=== PATIENT | female | born 1985 | race Two or more races ===

== ENCOUNTER 2017-04-20 00:16 | Emergency (ER) | payer OTHER ==
[~2017-04-20] VITALS: Ht 152.4 cm; Wt 74.4 kg
[2017-04-20] MEDS: LORATADINE 10 MG TABLET PO SCH (00:57)
--- NOTE | 2017-04-20 00:59 | NUR ---
Patient discharged to home in stable conditon. Written and verbal after care instructions given. Patient verbalizes understanding of instructions.
[2017-04-20] MEDS ORDERED: LORATADINE 10 MG TABLET ONE (01:04)
== END 2017-04-20 00:59 | disposition home or self-care (01) ==
LOC: ER 00:18
DX: S80.861A Insect bite (nonvenomous), right lower leg, initial encounter (principal); F10.20 Alcohol dependence, uncomplicated; F17.200 Nicotine dependence, unspecified, uncomplicated; W57.XXXA Bitten or stung by nonvenomous insect and other nonvenomous arthropods, initial encounter; Y93.89 Activity, other specified; Y99.8 Other external cause status; Y92.89 Other specified places as the place of occurrence of the external cause
CPT/HCPCS: A4663

== ENCOUNTER 2018-01-21 04:04 | Emergency (ER) | payer OTHER ==
[~2018-01-21] VITALS: Ht 144.8 cm; Wt 74.4 kg
--- NOTE | 2018-01-21 04:15 | NUR ---
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
--- NOTE | 2018-01-21 04:23 | NUR ---
Dr. English at bedside for MSE.
[2018-01-21 04:57] LABS: BASOPHILS # (AUTO) 0.1 K/uL (0.0-8.0); BASOPHILS % (AUTO) 0.7 % (0.0-2.0); EOSINOPHILS # (AUTO) 0.2 K/uL (0.0-0.7); EOSINOPHILS % (AUTO) 2.9 % (0.0-7.0); HEMATOCRIT 30.5 % (31.2-41.9); HEMOGLOBIN 9.6 g/dL (10.9-14.3); LYMPHOCYTES # (AUTO) 3.5 K/uL (20.0-40.0); LYMPHOCYTES % (AUTO) 42.7 % (20.5-51.5); MEAN CORPUSCULAR HEMOGLOBIN 20.1 uug (24.7-32.8); MEAN CORPUSCULAR HGB CONC 31 g/dL (32.3-35.6); MONOCYTES # (AUTO) 0.6 K/uL (2.0-10.0); NEUTROPHILS # (AUTO) 3.9 K/uL (1.8-8.9); NEUTROPHILS % (AUTO) 46.7 % (38.5-71.5); PLATELET COUNT (AUTO) 572 K/uL (179-408); RED BLOOD CELL COUNT(AUTO) 4.76 MIL/uL (3.63-4.92); WHITE BLOOD COUNT (AUTO) 8.3 K/uL (3.8-11.8)
[2018-01-21 05:09] LABS: CARBON DIOXIDE 26 mmol/L (21-32); CHLORIDE 104 mmol/L (98-107); CREATININE 0.6 mg/dL (0.6-1.3); GLUCOSE 97 mg/dL (74-106); POTASSIUM 3.2 mmol/L (3.5-5.1); UREA NITROGEN, BLOOD 11 mg/dL (7-18)
--- NOTE | 2018-01-21 05:12 | NUR ---
Xray at bedside.
[2018-01-21 05:15] LABS: ALANINE AMINOTRANSFERASE 28 U/L (14-59); ALKALINE PHOSPHATASE 86 U/L (50-136); ASPARTATE AMINOTRANSFERASE 13 U/L (15-37); BILIRUBIN,DIRECT < 0.1 mg/dL (0.0-0.2); BILIRUBIN,TOTAL 0.1 mg/dL (0.2-1.0); TOTAL PROTEIN, SERUM 8.1 g/dL (6.4-8.2)
[2018-01-21] MEDS ORDERED: ASPIRIN 325 MG TABLET PO ONE (05:30)
[2018-01-21] MEDS ORDERED: POTASSIUM BICARBONATE/CIT AC 25 MEQ TABLET.EFF PO ONE (05:30)
[2018-01-21 05:35] LABS: EOSINOPHILS % (MANUAL) 3 % (0-8); LYMPHOCYTES % (MANUAL) 41 % (20-40); MONOCYTES % (MANUAL) 8 % (2-10); NEUTROPHILS % (MANUAL) 48 % (42-75)
[2018-01-21] MEDS ORDERED: ASPIRIN 325 MG TABLET ONE (05:40)
[2018-01-21] MEDS ORDERED: POTASSIUM BICARBONATE/CIT AC 25 MEQ TABLET.EFF ONE (05:41)
[2018-01-21 06:02] VITALS: BP 133/86
--- NOTE | 2018-01-21 06:02 | NUR ---
Patient reports feeling better. Patient discharged to home in stable conditon. Written and verbal after care instructions given. Patient verbalizes understanding of instructions. Patient ambulated out of ER with steady gait, VSS, no acute signs of distress, all belongings taken, provided with lab and radiology reports.
== END 2018-01-21 06:00 | disposition home or self-care (01) ==
LOC: ER 04:08
DX: R42 Dizziness and giddiness (principal); F17.210 Nicotine dependence, cigarettes, uncomplicated; I48.91 Unspecified atrial fibrillation; I25.2 Old myocardial infarction
CPT/HCPCS: 36415; 70030-TC; 71045; 84703; 85025; 85730; 93005; A4663

== ENCOUNTER 2018-06-05 01:20 | Emergency (ER) | payer BC, OTHER ==
[~2018-06-05] VITALS: Ht 152.4 cm; Wt 71.7 kg
--- NOTE | 2018-06-05 02:00 | NUR ---
Dr. Sepulveda at bedside for MSE.
[2018-06-05] MEDS ORDERED: diphenhydrAMINE 25 MG CAP PO ONE ×2 (02:12→02:15)
--- NOTE | 2018-06-05 02:35 | NUR ---
Patient discharged to home in stable conditon. Written and verbal after care instructions given. Patient verbalizes understanding of instructions. Pt ambulated out of ER with steady gait, no acute signs of distress, VSS, all belongings taken.
[2018-06-05 02:36] VITALS: BP 134/72
== END 2018-06-05 02:36 | disposition home or self-care (01) ==
LOC: ER 01:24
DX: L50.9 Urticaria, unspecified (principal); R19.7 Diarrhea, unspecified; F17.200 Nicotine dependence, unspecified, uncomplicated
CPT/HCPCS: 99282; A4663; Q0163

== ENCOUNTER 2019-02-24 08:59 | Outpatient (CLI) | payer BC, OTHER | END 2019-02-24 23:59 | disposition home or self-care (01) | LOC: XRAY 08:59 | PROVIDERS: ATTEND Family Medicine | DX: I51.7 Cardiomegaly (principal) | CPT/HCPCS: 71046 ==

== ENCOUNTER 2019-02-25 14:46 | Outpatient (CLI) | payer BC, OTHER | END 2019-02-25 23:59 | disposition home or self-care (01) | LOC: RAD 14:46 | PROVIDERS: ATTEND Family Medicine | DX: I51.7 Cardiomegaly (principal) | CPT/HCPCS: 93307 ==

== ENCOUNTER 2019-12-16 03:42 | Emergency (ER) | payer BC, OTHER ==
[~2019-12-16] VITALS: Ht 144.8 cm; Wt 77.6 kg
--- NOTE | 2019-12-16 03:48 | NUR ---
Dr. English at bedside for MSE.
[2019-12-16] MEDS ORDERED: diphenhydrAMINE 50 MG/1 ML VIAL ONE (03:52)
[2019-12-16] MEDS ORDERED: METOCLOPRAMIDE HCL 10 MG/2 ML VIAL ONE (03:52)
[2019-12-16] MEDS ORDERED: diphenhydrAMINE 50 MG/1 ML VIAL IM ONE (04:00)
[2019-12-16] MEDS ORDERED: METOCLOPRAMIDE HCL 10 MG/2 ML VIAL IM ONE (04:00)
[2019-12-16 05:10] VITALS: BP 128/82
== END 2019-12-16 05:10 | disposition home or self-care (01) ==
LOC: ER 03:44
DX: R51 Headache (principal); F17.200 Nicotine dependence, unspecified, uncomplicated
CPT/HCPCS: 96372 ×2; 99284; J1200; J2765; A4663

== ENCOUNTER 2020-01-05 11:15 | Emergency (ER) | payer BC, OTHER ==
[~2020-01-05] VITALS: Ht 147.3 cm; Wt 77.1 kg
--- NOTE | 2020-01-05 11:23 | NUR ---
ERMD AT BEDSIDE PT C/O COUGHING Patient is AOx4, speaking in complete sentences, speech is clear. Patient is able to follow /comprehend directions. Gait is stable. No cardiovascular distress noted. Rate and rhythm are regular. No CP. DENIES RECENT TRAVELS T AT 98.1F PLACED ON DROPLET PREC ON PPE RA MONITORED ACCORDINGLY Addendum: 01/05/20 at 1207 by MARICASTIL T= 98.8F (ORAL)
--- NOTE | 2020-01-05 13:00 | NUR ---
Patient discharged to home in stable conditon. Written and verbal after care instructions given. Patient verbalizes understanding of instructions. ambulatory w/ stable gait all belongings w/ pt
[2020-01-05 13:28] VITALS: BP 180/80
== END 2020-01-05 13:05 | disposition home or self-care (01) ==
LOC: ER 11:15
DX: J06.9 Acute upper respiratory infection, unspecified (principal); F17.200 Nicotine dependence, unspecified, uncomplicated
CPT/HCPCS: 36415; 86403; 87070; 87400; A4663

== ENCOUNTER 2021-04-04 13:24 | Emergency (ER) | payer BC, OTHER ==
[~2021-04-04] VITALS: Ht 147.3 cm; Wt 77.1 kg
--- NOTE | 2021-04-04 13:38 | NUR ---
Dr Scott at the bedside for MSE.
[2021-04-04 14:05] LABS: BASOPHILS % (AUTO) 0.5 % (0.0-2.0); EOSINOPHILS # (AUTO) 0.1 K/uL (0.0-0.7); EOSINOPHILS % (AUTO) 1.4 % (0.0-7.0); HEMATOCRIT 28.4 % (31.2-41.9); HEMOGLOBIN 8.4 g/dL (10.9-14.3); LYMPHOCYTES # (AUTO) 2.5 K/uL (20.0-40.0); LYMPHOCYTES % (AUTO) 31.6 % (20.5-51.5); MEAN CORPUSCULAR HEMOGLOBIN 17.6 uug (24.7-32.8); MEAN CORPUSCULAR HGB CONC 30 g/dL (32.3-35.6); MEAN CORPUSCULAR VOLUME 59.3 fL (75.5-95.3); MONOCYTES # (AUTO) 0.4 K/uL (2.0-10.0); MONOCYTES % (AUTO) 4.5 % (0.0-11.0); NEUTROPHILS # (AUTO) 4.8 K/uL (1.8-8.9); PLATELET COUNT (AUTO) 610 K/uL (179-408); RED BLOOD CELL COUNT(AUTO) 4.79 MIL/uL (3.63-4.92); WHITE BLOOD COUNT (AUTO) 7.8 K/uL (3.8-11.8)
[2021-04-04 14:06] LABS: CARBON DIOXIDE 23 mmol/L (21-32); CHLORIDE 107 mmol/L (98-107); CREATININE 0.5 mg/dL (0.6-1.3); GLUCOSE 91 mg/dL (74-106); POTASSIUM 4.2 mmol/L (3.5-5.1); UREA NITROGEN, BLOOD 10 mg/dL (7-18)
[2021-04-04 14:11] LABS: ALANINE AMINOTRANSFERASE 23 U/L (14-59); ALKALINE PHOSPHATASE 78 U/L (50-136); ASPARTATE AMINOTRANSFERASE 17 U/L (15-37); BILIRUBIN,DIRECT 0.1 mg/dL (0.0-0.2); BILIRUBIN,TOTAL 0.2 mg/dL (0.2-1.0); TOTAL PROTEIN, SERUM 7.8 g/dL (6.4-8.2)
--- NOTE | 2021-04-04 14:28 | NUR ---
COVID swab sent to lab
[2021-04-04] MEDS ORDERED: AZIT1PAC PO (14:41)
[2021-04-04] MEDS ORDERED: CODE10LI PO (14:41)
[2021-04-04] MEDS ORDERED: AZIT250T13 PO (14:44)
--- NOTE | 2021-04-04 14:52 | NUR ---
Pt with pending COVID result, but otherwise clear for DC. Patient will be phoned by physician about results. Written and verbal after care instructions given. COVID 19 isolation precautions maintained pending results, educated pt about this as well. Patient verbalizes understanding of instructions. Stressed follow up or return to ER for worsening s/s. Ambulated out of ED in steady gait.
[2021-04-04 14:54] VITALS: BP 130/75
== END 2021-04-04 14:54 | disposition home or self-care (01) ==
LOC: ER 13:24
DX: J18.9 Pneumonia, unspecified organism (principal); D50.9 Iron deficiency anemia, unspecified; Z20.822 Contact with and (suspected) exposure to COVID-19; R55 Syncope and collapse; E66.9 Obesity, unspecified; Z68.35 Body mass index [BMI] 35.0-35.9, adult; I51.7 Cardiomegaly; R73.03 Prediabetes
CPT/HCPCS: 36415; 70030-TC; 71045; 85025; 93005; A4663

== ENCOUNTER 2021-04-24 06:16 | Outpatient (CLI) | payer BC, OTHER ==
[~2021-04-24 06:16] MED LIST: AZIT250T13 PO; CODE10LI PO
[2021-04-24 22:37] LABS: HEMATOCRIT 29.5 % (31.2-41.9); MEAN CORPUSCULAR HEMOGLOBIN 17.6 uug (24.7-32.8); MEAN CORPUSCULAR VOLUME 59.8 fL (75.5-95.3); PLATELET COUNT (AUTO) 593 K/uL (179-408)
[2021-04-24 22:51] LABS: BILIRUBIN,TOTAL 0.3 mg/dL (0.2-1.0); CREATININE 0.6 mg/dL (0.6-1.3); POTASSIUM 3.7 mmol/L (3.5-5.1); TOTAL PROTEIN, SERUM 7.8 g/dL (6.4-8.2)
[2021-04-24 22:55] LABS: THYROID STIMULATING HORMONE 3.334 mIU/mL (0.358-3.740)
[2021-04-25 00:18] LABS: *BILIRUBIN,URIN 1+ (NEGATIVE); *CLARITY,URINE CLEAR (CLEAR); *COLOR,URINE YELLOW (YELLOW); *KETONES,URINE NEGATIVE (NEGATIVE); *UROBILINOGEN,URINE 0.2 E.U./dl (NORMAL); LEUKOCYTE ESTERASE ,URINE TRACE (NEGATIVE); NITRITE, URINE NEGATIVE (NEGATIVE); PH,URINE 5.5 (5.0-8.0); UGLUCOSE NEGATIVE (NEGATIVE)
[2021-04-25 00:25] LABS: *BLOOD, URINE TRACE (NEGATIVE)
[2021-04-25 00:30] LABS: BACTERIA,URINE MODERATE /HPF (NONE SEEN); SQUAMOUS EPITHELIAL CELL,UR MANY /HPF (NONE SEEN)
[2021-04-25 06:30] LABS: EOSINOPHILS % (MANUAL) 1 % (0-8); LYMPHOCYTES % (MANUAL) 35 % (20-40); MONOCYTES % (MANUAL) 5 % (2-10); NEUTROPHILS % (MANUAL) 59 % (42-75)
== END 2021-04-24 23:59 | disposition home or self-care (01) ==
LOC: LAB 06:16
DX: D64.9 Anemia, unspecified (principal); L65.9 Nonscarring hair loss, unspecified; R63.4 Abnormal weight loss; R07.9 Chest pain, unspecified
CPT/HCPCS: 70030-TC; 84443; 85025; 85651; 86038; 86140; 87086

== ENCOUNTER 2021-12-26 06:51 | Emergency (ER) | payer BC, OTHER ==
[~2021-12-26] VITALS: Ht 147.3 cm; Wt 69.9 kg
[2021-12-26 07:21] VITALS: BP 133/78
--- NOTE | 2021-12-26 07:21 | NUR ---
PT WAS EVALUATED BY DR PINEDA. PT WAS D/C'd TO HOME. D/C INSTRUCTIONS GIVEN TO THE PT BY DR PINEDA.
== END 2021-12-26 07:22 | disposition home or self-care (01) ==
LOC: ER 06:56
DX: S00.83XA Contusion of other part of head, initial encounter (principal); Y04.2XXA Assault by strike against or bumped into by another person, initial encounter; Y92.239 Unspecified place in hospital as the place of occurrence of the external cause; Y99.0 Civilian activity done for income or pay; R73.03 Prediabetes
CPT/HCPCS: A4663

== ENCOUNTER 2022-11-20 04:00 | Inpatient (IN) | payer BC, OTHER ==
[~2022-11-20] VITALS: Ht 144.8 cm; Wt 60.8 kg
--- NOTE | 2022-11-20 04:15 | NUR ---
Dr. Gomez evaluating patient at bedside. MSE in progress.
[2022-11-20] MEDS ORDERED: ASPIRIN 81 MG TAB.CHEW ONE (04:22)
[2022-11-20] MEDS ORDERED: ONDANSETRON ODT 4 MG TAB.RAPDIS ONE (04:22)
[2022-11-20] MEDS ORDERED: LORAZEPAM 1 MG TABLET ONE (04:23)
[2022-11-20] MEDS ORDERED: OXYCODONE/APAP 5-325 MG TABLET ONE (04:23)
[2022-11-20] MEDS ORDERED: LORAZEPAM 0.5 MG TABLET PO ONE (04:30)
[2022-11-20] MEDS ORDERED: ONDANSETRON ODT 4 MG TAB.RAPDIS SL ONE (04:30)
[2022-11-20] MEDS ORDERED: ASPIRIN 81 MG TAB.CHEW PO ONE (04:30)
[2022-11-20] MEDS ORDERED: OXYCODONE/APAP 5-325 MG TABLET PO ONE (04:30)
--- NOTE | 2022-11-20 04:37 | NUR ---
Xray at bedside
[2022-11-20 04:59] LABS: HEMATOCRIT 25.3 % (31.2-41.9); MEAN CORPUSCULAR HEMOGLOBIN 15.7 uug (24.7-32.8); MEAN CORPUSCULAR VOLUME 55.6 fL (75.5-95.3); PLATELET COUNT (AUTO) 707 K/uL (179-408)
[2022-11-20] MEDS ORDERED: HYDROMORPHONE 1 MG/1 ML DISP.SYRIN IV ONE (05:00)
[2022-11-20 05:04] LABS: CARBON DIOXIDE 28 mmol/L (21-32); CHLORIDE 102 mmol/L (98-107); CREATININE 0.8 mg/dL (0.6-1.3); GLUCOSE 117 mg/dL (74-106); POTASSIUM 3.4 mmol/L (3.5-5.1); UREA NITROGEN, BLOOD 10 mg/dL (7-18)
[2022-11-20] MEDS ORDERED: HYDROMORPHONE 1 MG/1 ML DISP.SYRIN ONE (05:05)
[2022-11-20 05:17] LABS: ALKALINE PHOSPHATASE 81 U/L (50-136); ASPARTATE AMINOTRANSFERASE 14 U/L (15-37); BILIRUBIN,DIRECT 0.1 mg/dL (0.0-0.2); BILIRUBIN,TOTAL 0.2 mg/dL (0.2-1.0); TOTAL PROTEIN, SERUM 8.2 g/dL (6.4-8.2)
[2022-11-20 05:29] LABS: ALANINE AMINOTRANSFERASE < 10 U/L (14-59)
--- NOTE | 2022-11-20 05:40 | NUR ---
Called [facility] for panel call. Diandra SALTER vest front presser. Waiting for call back.
--- NOTE | 2022-11-20 05:45 | NUR ---
Dr Gomez on panel call with Diandra SALTER. Pending admission.
--- NOTE | 2022-11-20 05:55 | NUR ---
Called third floor for [facility] bed. Patient has been admitted to Room 316.
--- NOTE | 2022-11-20 06:29 | NUR ---
Called third floor to give report. Per solar pool heating installer, patient will be admitted after 07:00AM
[2022-11-20] MEDS ORDERED: MAGNESIUM HYDROXIDE 30 ML LIQUID UDC PO PRN (07:15)
[2022-11-20] MEDS ORDERED: REMEDY ESSENTIAL ZINC PASTE 113 GM TP PRN (07:15)
[2022-11-20] MEDS ORDERED: ONDANSETRON 4 MG/2 ML VIAL IV PRN (07:15)
[2022-11-20] MEDS ORDERED: ACETAMINOPHEN 325 MG TABLET PO PRN (07:15)
--- NOTE | 2022-11-20 07:23 | NUR ---
Report given to Brea GUTIERREZ.
--- NOTE | 2022-11-20 07:25 | NUR ---
Received report from Mayra GUTIERREZ.
--- NOTE | 2022-11-20 08:10 | NUR ---
Gave report to Shakira GUTIERREZ.
--- NOTE | 2022-11-20 08:30 | NUR ---
ADMITTED FROM HOME VIA ER 37 YO FEMALE WITH ADMITTING DX ANEMIA, AWAKE ALERT AND ORIENTED X3 DENIES PAIN OR SOB BUT WEAKNESS, PALE LOOKING WARM AND DRY SKIN. STATUS MED/SURG
--- NOTE | 2022-11-20 08:34 | NUR ---
Pt in stable condition, V/S WNL; BP = 119/80, HR = 81, RR = 17, O2 Sat = 99%. Denies pain, n/v, dizziness and headache. Transported pt to Med-Surg unit, Rm 316, received by Shakira GUTIERREZ.
--- NOTE | 2022-11-20 09:45 | NUR ---
DR JACKSON NOTIFIED OF HGB 7.2 ADVISED TO GIVE 1 UNIT PRBC
[2022-11-20 09:51] LABS: THYROID STIMULATING HORMONE 3.237 mIU/mL (0.358-3.740)
--- NOTE | 2022-11-20 10:51 | NUR ---
BLOOD TRANSFUSION STARTED AND CLOSELY MONITORED
[2022-11-20 10:52] VITALS: BP 122/80
[2022-11-20] MEDS ORDERED: POTASSIUM CHLORIDE 20 MEQ TAB.PRT.SR PO ONE (11:00)
--- NOTE | 2022-11-20 11:00 | NUR ---
NO BLOOD TRANSFUSION REACTION NOTED
[2022-11-20 11:07] VITALS: BP 130/56
[2022-11-20 11:54] VITALS: BP 130/79
[2022-11-20 12:00] VITALS: BP 130/79
[2022-11-20 13:26] VITALS: BP 128/62
--- NOTE | 2022-11-20 13:28 | NUR ---
blood transfusion completed, no reaction and tolerated well
[2022-11-20] MEDS ORDERED: SOD FERRIC GLUC COMPLX/SUCROSE 125 MG in IV NORMAL SALINE 100 ML IV SCH (14:00)
--- NOTE | 2022-11-20 15:00 | NUR ---
SEEN BY DR JACKSON WITH DISCHARGE ORDER, GRADUATING MACHINE OPERATOR AWARE
[2022-11-20 15:53] VITALS: BP 114/80
[2022-11-20] MEDS ORDERED: FERR325T28 PO (16:21)
[2022-11-20] MEDS ORDERED: IBUP-1953 PO (16:21)
--- NOTE | 2022-11-20 18:28 | NUR ---
DISCHARGE MEDICATION AND FOLLOW-UP INSTRUCTION GIVEN
== END 2022-11-20 18:46 | disposition home or self-care (01) | DRG 812 ==
LOC: ER 04:04 → MEDSURG3 08:16
PROVIDERS: ADMIT Internal Medicine; ATTEND Internal Medicine
PROC: 30233N1 Transfusion of Nonautologous Red Blood Cells into Peripheral Vein, Percutaneous Approach (ICD-10-PCS; principal; 2022-11-20)
DX: D50.8 Other iron deficiency anemias (principal); M94.0 Chondrocostal junction syndrome [Tietze]; E66.9 Obesity, unspecified; E87.6 Hypokalemia; F17.210 Nicotine dependence, cigarettes, uncomplicated; F32.A Depression, unspecified; Z68.29 Body mass index [BMI] 29.0-29.9, adult; D50.9 Iron deficiency anemia, unspecified; R73.03 Prediabetes; Z20.822 Contact with and (suspected) exposure to COVID-19
CPT/HCPCS: 36415; 71045; 83550; 84443; 84484; 85025; 86850; 86900; 86901; 86920; 93005; A4663; G0378; J1170; J2916; P9016; Q0162

== ENCOUNTER 2023-07-18 18:47 | Emergency (ER) | payer BC, OTHER ==
[~2023-07-18] VITALS: Ht 162.6 cm; Wt 68.0 kg
[~2023-07-18 18:47] MED LIST changes: -AZIT250T13 PO; -CODE10LI PO; +FERR325T28 PO; +IBUP-1953 PO
[2023-07-18] MEDS ORDERED: ONDANSETRON ODT 4 MG TAB.RAPDIS SL ONE (19:15)
[2023-07-18] MEDS ORDERED: CLONIDINE HCL 0.1 MG TABLET PO ONE (19:15)
[2023-07-18] MEDS ORDERED: HYDROCODONE/APAP 5-325MG TABLET PO ONE (19:15)
[2023-07-18] MEDS ORDERED: ONDANSETRON ODT 4 MG TAB.RAPDIS ONE (19:21)
[2023-07-18] MEDS ORDERED: HYDROCODONE/APAP 5-325MG TABLET ONE (19:21)
[2023-07-18 19:24] LABS: BASOPHILS % (AUTO) 0.5 % (0.0-2.0); EOSINOPHILS # (AUTO) 0.6 K/uL (0.0-0.7); EOSINOPHILS % (AUTO) 6.5 % (0.0-7.0); HEMATOCRIT 39.8 % (31.2-41.9); HEMOGLOBIN 13.2 g/dL (10.9-14.3); LYMPHOCYTES # (AUTO) 0.7 K/uL (0.8-4.8); LYMPHOCYTES % (AUTO) 8.4 % (20.5-51.5); MEAN CORPUSCULAR HEMOGLOBIN 28.8 uug (24.7-32.8); MEAN CORPUSCULAR HGB CONC 33 g/dL (32.3-35.6); MEAN CORPUSCULAR VOLUME 86.6 fL (75.5-95.3); MONOCYTES # (AUTO) 0.2 K/uL (0.1-1.30); MONOCYTES % (AUTO) 2.8 % (0.0-11.0); NEUTROPHILS # (AUTO) 7.2 K/uL (1.8-8.9); NEUTROPHILS % (AUTO) 81.8 % (38.5-71.5); PLATELET COUNT (AUTO) 360 K/uL (179-408); RED BLOOD CELL COUNT(AUTO) 4.59 MIL/uL (3.63-4.92); RED CELL DISTRIBUTION WIDTH 13.6 % (12.3-17.7); WHITE BLOOD COUNT (AUTO) 8.9 K/uL (3.8-11.8)
[2023-07-18 19:26] LABS: DIFFERENTIAL COMMENT 1
[2023-07-18 19:30] LABS: CALCIUM 8.9 mg/dL (8.5-10.1); CARBON DIOXIDE 25 mmol/L (21-32); CHLORIDE 103 mmol/L (98-107); CREATININE 0.5 mg/dL (0.6-1.3); GLUCOSE 109 mg/dL (74-106); POTASSIUM 3.7 mmol/L (3.5-5.1); SODIUM SERUM 138 mmol/L (136-145); UREA NITROGEN, BLOOD 10 mg/dL (7-18)
[2023-07-18 19:36] LABS: ALANINE AMINOTRANSFERASE 23 U/L (14-59); ALBUMIN 3.9 g/dL (3.4-5.0); ALKALINE PHOSPHATASE 82 U/L (50-136); ASPARTATE AMINOTRANSFERASE 15 U/L (15-37); BILIRUBIN,TOTAL 0.3 mg/dL (0.2-1.0); TOTAL PROTEIN, SERUM 8.5 g/dL (6.4-8.2)
[2023-07-18 19:40] LABS: IRON, SERUM 19 ug/dL (50-175)
[2023-07-18] MEDS ORDERED: ONDA4TAB5 PO (19:46)
[2023-07-18] MEDS ORDERED: HYDR-4209 PO (19:46)
[2023-07-18 19:58] VITALS: BP 103/66; O2SAT 100
== END 2023-07-18 19:59 | disposition home or self-care (01) ==
LOC: ER 18:48
DX: R51.9 Headache, unspecified (principal); F17.210 Nicotine dependence, cigarettes, uncomplicated; Z71.6 Tobacco abuse counseling; Z79.1 Long term (current) use of non-steroidal anti-inflammatories (NSAID); Z79.899 Other long term (current) drug therapy
CPT/HCPCS: 36415; 83550; 85025; A4663; Q0162

== ENCOUNTER 2023-11-01 02:48 | Emergency (ER) | payer BC, OTHER ==
[~2023-11-01] VITALS: Ht 144.8 cm; Wt 61.2 kg
[~2023-11-01 02:48] MED LIST changes: +HYDR-4209 PO; +ONDA4TAB5 PO
[2023-11-01 04:39] LABS: BASOPHILS % (AUTO) 0.4 % (0.0-2.0); HEMATOCRIT 37.9 % (31.2-41.9); HEMOGLOBIN 12.5 g/dL (10.9-14.3); LYMPHOCYTES # (AUTO) 0.3 K/uL (0.8-4.8); LYMPHOCYTES % (AUTO) 3.9 % (20.5-51.5); MEAN CORPUSCULAR HEMOGLOBIN 25.8 uug (24.7-32.8); MEAN CORPUSCULAR HGB CONC 33 g/dL (32.3-35.6); MEAN CORPUSCULAR VOLUME 78.2 fL (75.5-95.3); MONOCYTES # (AUTO) 0.4 K/uL (0.1-1.30); MONOCYTES % (AUTO) 5.2 % (0.0-11.0); NEUTROPHILS # (AUTO) 7.3 K/uL (1.8-8.9); NEUTROPHILS % (AUTO) 90.5 % (38.5-71.5); PLATELET COUNT (AUTO) 369 K/uL (179-408); RED BLOOD CELL COUNT(AUTO) 4.84 MIL/uL (3.63-4.92); RED CELL DISTRIBUTION WIDTH 15.7 % (12.3-17.7)
[2023-11-01] MEDS ORDERED: IV NORMAL SALINE 1000 ML BAG IV ONE (04:45)
[2023-11-01] MEDS ORDERED: DEXAMETHASONE SOD PHOSPHATE 4 MG INJ IV ONE (04:45)
[2023-11-01 05:08] LABS: ALANINE AMINOTRANSFERASE 27 U/L (14-59); ALBUMIN 3.7 g/dL (3.4-5.0); ALKALINE PHOSPHATASE 76 U/L (50-136); ASPARTATE AMINOTRANSFERASE 16 U/L (15-37); BILIRUBIN,DIRECT 0.1 mg/dL (0.0-0.2); BILIRUBIN,TOTAL 0.2 mg/dL (0.2-1.0); CALCIUM 8.9 mg/dL (8.5-10.1); CARBON DIOXIDE 21 mmol/L (21-32); CHLORIDE 102 mmol/L (98-107); CREATININE 0.6 mg/dL (0.6-1.3); GLUCOSE 112 mg/dL (74-106); POTASSIUM 3.6 mmol/L (3.5-5.1); SODIUM SERUM 138 mmol/L (136-145); TOTAL PROTEIN, SERUM 8.3 g/dL (6.4-8.2); UREA NITROGEN, BLOOD 6 mg/dL (7-18)
[2023-11-01 05:15] LABS: DIFFERENTIAL COMMENT 1
[2023-11-01] MEDS ORDERED: DEXAMETHASONE SOD PHOSPHATE 10 MG INJ ONE (05:26)
[2023-11-01] MEDS ORDERED: PROM118S5 PO ×2 (06:36→06:39)
[2023-11-01] MEDS ORDERED: ONDA4TAB5 PO ×2 (06:36→06:39)
[2023-11-01] MEDS ORDERED: lidocaine TOP (06:36)
[2023-11-01] MEDS ORDERED: AZIT500T PO ×2 (06:36→06:39)
[2023-11-01] MEDS ORDERED: IBUP-1953 PO ×2 (06:36→06:39)
[2023-11-01 07:16] VITALS: BP 140/99; TEMP 98.3; O2SAT 98
== END 2023-11-01 07:15 | disposition home or self-care (01) ==
LOC: ER 02:55
DX: J18.9 Pneumonia, unspecified organism (principal); R03.0 Elevated blood-pressure reading, without diagnosis of hypertension; R07.89 Other chest pain; F17.210 Nicotine dependence, cigarettes, uncomplicated; Z79.1 Long term (current) use of non-steroidal anti-inflammatories (NSAID); Z79.2 Long term (current) use of antibiotics; Z79.899 Other long term (current) drug therapy; Z20.822 Contact with and (suspected) exposure to COVID-19
CPT/HCPCS: 99284; 96374; 71045; 87426; 87804 ×2; 80076; 80048; 85025; 84145; 85730; 84484; 36415; J1100; J7040; A4606; A4663

== ENCOUNTER 2024-05-21 21:04 | Emergency (ER) | payer BC, OTHER ==
[~2024-05-21] VITALS: Ht 144.8 cm; Wt 68.0 kg
[~2024-05-21 21:04] MED LIST changes: +AZIT500T PO; +PROM118S5 PO; +lidocaine TOP
[2024-05-21 23:28] VITALS: BP 130/79; TEMP 98.8; O2SAT 100
== END 2024-05-21 23:28 | disposition home or self-care (01) ==
LOC: ER 21:09
DX: U07.1 COVID-19 (principal); J20.9 Acute bronchitis, unspecified; F17.200 Nicotine dependence, unspecified, uncomplicated; Z79.1 Long term (current) use of non-steroidal anti-inflammatories (NSAID); Z79.899 Other long term (current) drug therapy
CPT/HCPCS: 71045; A4606; A4663

== ENCOUNTER 2025-09-21 00:02 | Emergency (ER) | payer BC, OTHER ==
[~2025-09-21] VITALS: Ht 144.8 cm; Wt 75.7 kg
[2025-09-21] MEDS ORDERED: ACETAMINOPHEN 500 MG TABLET ONE (00:14)
[2025-09-21] MEDS ORDERED: NAPROXEN 500 MG TABLET ONE (00:15)
[2025-09-21 00:27] LABS: PLATELET COUNT (AUTO) 379 K/uL (179-408); RED BLOOD CELL COUNT(AUTO) 4.95 MIL/uL (3.63-4.92); RED CELL DISTRIBUTION WIDTH 14.7 % (12.3-17.7); WHITE BLOOD COUNT (AUTO) 9.7 K/uL (3.8-11.8)
[2025-09-21] MEDS: ACETAMINOPHEN 500 MG TABLET PO ONE (00:27)
[2025-09-21] MEDS ORDERED: IBUPROFEN 600 MG TABLET ONE (00:27)
[2025-09-21] MEDS: IBUPROFEN 600 MG TABLET PO ONE (00:29)
[2025-09-21] MEDS: NAPROXEN 500 MG TABLET PO ONE (00:29)
[2025-09-21 00:37] LABS: CREATININE 0.6 mg/dL (0.6-1.3); SODIUM SERUM 136.0 mmol/L (136-145); UREA NITROGEN, BLOOD 7.0 mg/dL (7-18)
[2025-09-21 01:00] VITALS: BP 146/104
[2025-09-21] MEDS ORDERED: ACET-2605 PO (01:06)
[2025-09-21] MEDS ORDERED: IBUP-2760 PO (01:06)
[2025-09-21 01:48] VITALS: BP 135/99; O2SAT 99
== END 2025-09-21 01:42 | disposition home or self-care (01) ==
LOC: ER 00:11
DX: R51.9 Headache, unspecified (principal); R07.9 Chest pain, unspecified; R03.0 Elevated blood-pressure reading, without diagnosis of hypertension; F17.210 Nicotine dependence, cigarettes, uncomplicated; I11.9 Hypertensive heart disease without heart failure; E78.5 Hyperlipidemia, unspecified; Z88.7 Allergy status to serum and vaccine; Z20.822 Contact with and (suspected) exposure to COVID-19
CPT/HCPCS: 36415; 71045; 83735; 84484; 85025; A4606; A4663; A9150